=== PATIENT | male | born 1950 | race Caucasian/White ===

== ENCOUNTER → 2017-02-09 | Outpatient (CLI) | payer OTHER ==
[~2017-02-09] MED LIST: ACHYD1T PO; ASPI-586 PO; ATOR40TA2 PO; INSU100I14 SQ; LANTUS SOL100 UNIT/1 SC; LEVO75TA4 PO; LOSA100T8 PO; NF-SILD25T PO
== END ==
LOC: EMS 15:10
DX: R07.89 Other chest pain (principal)